=== PATIENT | female | born 1965 | race Caucasian/White ===

== ENCOUNTER 2018-11-09 06:27 | Emergency (ER) | payer SELFPAY ==
[~2018-11-09] VITALS: Ht 165.1 cm; Wt 65.0 kg
[~2018-11-09 06:27] MED LIST: ALBU8HFA4 IH; D-ME118S13 PO
[2018-11-09] MEDS ORDERED: IBUPROFEN 600 MG TABLET PO ONE (08:45)
[2018-11-09 09:24] VITALS: BP 145/101
== END 2018-11-09 10:34 | disposition home or self-care (01) ==
LOC: EMS 06:28
DX: S63.502A Unspecified sprain of left wrist, initial encounter (principal); Z88.0 Allergy status to penicillin; X58.XXXA Exposure to other specified factors, initial encounter; Y93.89 Activity, other specified; Y92.89 Other specified places as the place of occurrence of the external cause; Y99.0 Civilian activity done for income or pay

== ENCOUNTER 2024-05-11 07:39 | Emergency (ER) | payer SELFPAY ==
[~2024-05-11] VITALS: Ht 165.1 cm; Wt 68.2 kg
[2024-05-11 07:41] VITALS: TEMP 98.1
[2024-05-11] MEDS ORDERED: LIDO700A15 TP (08:03)
[2024-05-11] MEDS ORDERED: ACET-3385 PO (08:03)
[2024-05-11] MEDS ORDERED: IBUP-1492 PO (08:03)
[2024-05-11] MEDS: LIDOCAINE 5% TRANSDERMAL PATCH TD ONE (08:13)
[2024-05-11] MEDS: ACETAMINOPHEN 500 MG TABLET PO ONE (08:13)
[2024-05-11] MEDS: KETOROLAC TROMETHAMINE 30 MG/ML VIAL IM ONE (08:13)
[2024-05-11 08:20] VITALS: BP 145/90; PULSE 84; RESP 16
== END 2024-05-11 08:45 | disposition home or self-care (01) ==
LOC: EMS 07:53
DX: S13.4XXA Sprain of ligaments of cervical spine, initial encounter (principal); Z98.890 Other specified postprocedural states; Z88.0 Allergy status to penicillin; V89.2XXA Person injured in unspecified motor-vehicle accident, traffic, initial encounter; Y93.89 Activity, other specified; Y92.89 Other specified places as the place of occurrence of the external cause; Y99.8 Other external cause status
CPT/HCPCS: 99283; 96372; J1885